=== PATIENT | male | born 1965 | race Caucasian/White ===

== ENCOUNTER 2024-05-20 06:24 | Emergency (ER) | payer SELFPAY ==
[2024-05-20 06:25] VITALS: BP 144/88
[2024-05-20 07:00] VITALS: BP 147/76
[2024-05-20 08:00] VITALS: BP 142/84
[2024-05-20 08:14] LABS: COVID-19 Antigen Positive (Negative)
[2024-05-20 08:15] LABS: ALT (SGPT) 20 U/L (0-50); AST (SGOT) 32 U/L (17-59); Albumin 4.3 g/dl (3.5-5.0); Alkaline Phosphatase 74 U/L (38-126); Blood Urea Nitrogen 11 mg/dl (9-20); Calcium 8.8 mg/dl (8.4-10.2); Carbon Dioxide 27 mmol/L (22-30); Chloride 96 mmol/L (98-107); Glucose 108 mg/dl (70-99); Potassium 4.5 mmol/L (3.5-5.1); Sodium 131 mmol/L (135-145); Total Bilirubin 0.4 mg/dl (0.2-1.3); Total Protein 6.9 g/dl (6.3-8.2); eGFR > 60.00
[2024-05-20 08:26] LABS: Troponin I 0.017 ng/ml
[2024-05-20 08:47] LABS: Hematocrit 44.8 % (39.0-52.0); Hemoglobin 15.6 g/dL (13.0-18.0); Mean Corp Hgb Conc. 34.8 g/dL (33.0-37.0); Mean Corpuscular Hgb 31.7 pg (27.0-31.0); Mean Corpuscular Volume 91.1 fL (80.0-94.0); Mean Platelet Volume 9.1 fL (7.4-10.4); Platelet Count 267 10^3/uL (130-400); Red Blood Cell Count 4.92 10^6/uL (4.70-6.10); Red Cell Dist. Width 13.4 % (11.5-14.5); White Blood Cell Count 8.6 10^3/uL (4.8-10.8)
[2024-05-20 08:48] LABS: Absolute Neutrophils -Man Diff 6.4 10^3/uL (1.4-6.5); Atypical Lymphocytes 8 %; Band Neutrophils 5 % (0-3); Lymphocytes 8 % (20-51); Monocytes 9 % (2-9); Normal RBC Morphology Yes; Platelets Checked Yes; Segmented Neutrophils 70 % (42-75); Total Cells Counted 100
--- NOTE | 2024-05-20 09:07 | ED.GENMED ---
History of Present Illness
General
Chief Complaint: Chest Pain
Source: patient
Exam Limitations: none
Time Seen by Provider: 05/20/24 07:17
Nursing documentation reviewed up to this point in time: agreed with
History of Present Illness
History of Present Illness:
59 yo male smoker with no significant PMHX states he has mid non radiating chest pain, like someone is sitting on my chest, worse with deep breath and certain movements. Started yesterday after shovelling snow and carrying firewood. Has had a cough
also. Denies SOB, abdominal pain, lightheadedness.
Past History
Past History
ED Past Surgical History: None
Social History
Tobacco: Smoker
Review of Systems
Review of Systems
Allergies reviewed?: Yes
All Other Systems: ROS reviewed and negative except as documented in HPI and ROS
Constitutional: Denies fever
EENT: Denies sore throat
Respiratory: Reports cough (mild); Denies trouble breathing
Cardiac: Reports chest pain; Denies diaphoresis, palpitations or syncope
ABD/GI: Denies abdominal pain, nausea, vomiting or diarrhea
: Denies difficulty voiding
Musculoskeletal: Reports no symptoms
Skin: Reports no symptoms
Neurological: Reports no symptoms
Phy Exam
Physical Exam
Physical Exam:
GENERAL: No acute distress. A&Ox3.
CONSTITUTIONAL: Afebrile.
EYES: clear, conjunctivae normal
ENMT: moist mucus membranes, Pharynx nl
RESPIRATORY: Regular respirations, nonlabored, lungs clear. Occasional dry cough noted
CARDIOVASCULAR: Regular rate and rhythm, no murmurs, no rubs.
GI: Soft, nontender, normal BS
MUSCULOSKELETAL: Unable to reproduce pain with palpation of the chest wall. Moves with ease. Well perfused.
SKIN: Warm, dry, pink
PSYCH: Normal mood and affect. Well kept, interactive and appropriate
NEUROLOGIC: Awake, alert and oriented. No focal neurological deficits
Scores
Heart Score for Chest Pain Patients
STEMI patient?: Not applicable
Course
Orders/Labs/Results
Orders:
Orders
05/20/24 06:28
Electrocardiogram (*1) Urgent
Reason for Study: Chest Pain
05/20/24 06:29
EKG- Treatment ONCE
05/20/24 07:36
COVID-19 Antigen Urgent
Source: Nasal Swab
Complete Blood Count/With Diff Urgent
Comprehensive Metabolic Panel Urgent
Manual Differential Urgent
Troponin I Urgent
Influenza A+B Rapid Molecular Urgent
ADOLFO Source: Nasal Swab
Specimen Description:
05/20/24 07:51
CR Chest - 2 Views Urgent
Comment:
Reason For Exam: mid sternal CP
05/20/24 09:09
Acetaminophen [Tylenol] 1,000 mg PO NOW STA
Ketorolac [Toradol] 15 mg IV NOW STA
Abnormal Lab Results
05/20/24
07:36
MCH 31.7 H pg
(27.0-31.0)
Band Neutrophils 5 H %
(0-3)
Lymphocytes (Manual) 8 L %
(20-51)
Sodium 131 L mmol/L
(135-145)
Chloride 96 L mmol/L
(98-107)
Glucose 108 H mg/dl
(70-99)
SARS-CoV-2 Antigen Positive A
(Negative)
05/20/24 07:36
05/20/24 07:36
Vital Signs
Initial and Last Documented VS:
Initial Vital Signs
Temp Pulse Resp BP Pulse Ox
98 F 110 20 144/88 97
05/20/24 06:25 05/20/24 06:25 05/20/24 06:25 05/20/24 06:25 05/20/24 06:25
Last Documented Vital Signs
Temp Pulse Resp BP Pulse Ox
98.4 F 81 21 143/79 93
05/20/24 09:51 05/20/24 09:51 05/20/24 09:51 05/20/24 09:51 05/20/24 09:51
MDM/Problems Addressed
Differential Diagnosis Includes:
ACS, [place], PNA, Covid
MDM/Problems Addressed:
59 yo male smoker with no significant PMHX states he has mid non radiating chest pain, like someone is sitting on my chest, worse with deep breath and certain movements. Started yesterday after shovelling snow and carrying firewood. Has had a cough
also. Denies SOB, abdominal pain, lightheadedness.
States he's had no Flu or Covid vaccines
Afebrile NAD
EKG: NSR
8:30 a.m.
CBC normal
CMP normal
Flu neg
Covid positive
CXR NAD
9:10 a.m.
Pt notified of results, states he has a headache 12/07, general. Will give Toradol IV for CP, Tylenol for H/A
At discharge, ambulated out with normal gait.
*EKG
EKG Intrepretation Date: 05/20/24
Interpretation: normal
Heart Rate: 98
Rate: normal
Rhythm: sinus
Badin: normal axis
Interval: normal interval
QRS Pattern: normal QRS
Ischemia: no ischemia
*Critical Care Note
Total Time (30-74mins, 75-104mins- exclusive of procedures): Not Applicable
ED Attending Note
-
Portions of this chart may have been created with voice recognition software.� Occasional wrong word or��sound alike� substitutions may have occurred due to the inherent limitations of voice recognition software.
Discharge Plan
Departure
Patient Disposition: Home (Routine Discharge)
Date of Disposition: 05/20/24
Time of Disposition: 09:12
Patient with high blood pressure during this ER visit?: No
Condition: Good
Covid-19: Confirmed COVID-19
Discharge Problem:
COVID-19, Acute costochondritis
Instructions: Costochondritis (DC), COVID-19 - ED discharge instructions
Prescriptions:
No Action
lisinopril-hydrochlorothiazide 20-12.5 mg tablet
1 tab PO DAILY Qty: 30 3RF
Referrals:
NONE,* [Family Provider] -
Activity Restrictions/Additional Instructions:
As we discussed, you are positive for Covid. This is most likely cause of your headache, any aches and pains.
Tylenol or Ibuprofen as needed for fever, aches and pains.
Interventions
Interventions:
*Risk Screen - Suicide Last Done: 05/20/24 06:25
*General Assessment Last Done: 05/20/24 07:50
*Neglect/Abuse Screening Last Done: 05/20/24 06:25
ED- Fall Risk Assessment Last Done: 05/20/24 07:50
*ED COVID-19 Vaccine History Last Done: 05/20/24 07:50
*Nursing Disposition Last Done: 05/20/24 09:51
ED- Cardiac Assessment Last Done: 05/20/24 07:50
Discharge Date and Time
Discharge Date/Time: 05/20/24 09:53
Print Language: [id number]
[2024-05-20] MEDS: TYLENOL 1000 MG PO (09:28)
[2024-05-20] MEDS: TORADOL 15 MG IV (09:29)
[2024-05-20 09:51] VITALS: BP 143/79
== END 2024-05-20 09:53 | disposition home or self-care (01) ==
LOC: EMR 06:24
PROVIDERS: Emergency Medicine; Registered Nurse; EMERGENCY PHYSICIAN Emergency Medicine
DX: U07.1 COVID-19 (principal); M94.0 Chondrocostal junction syndrome [Tietze]; F17.200 Nicotine dependence, unspecified, uncomplicated
CPT/HCPCS: 99285; 96374; 71046; 80053; 84484; 85025; 87502; 87811; 93005